=== PATIENT | female | born 1960 | race African-American/Black ===

== ENCOUNTER 2017-05-05 05:38 | Emergency (ER) | payer MEDICAID, OTHER ==
[~2017-05-05] VITALS: Ht 170.2 cm; Wt 92.1 kg
[~2017-05-05 05:38] MED LIST: ATENOLOL25 MG ORAL; GUAIFENESIN-CO118 M1 ORAL; HYDROCHLOROTHIA25 MG ORAL
[2017-05-05 05:57] VITALS: BP 192/105
--- NOTE | 2017-05-05 05:57 | Emergency Room Report ---
History of Present Illness General Chief Complaint: Chest Pain Source: Patient Present Illness HPI This is a 56-year-old female with history of high blood pressure. She's also history of chronic pain for which she takes baclofen and oxycodone. She presents with chief complaint of chest pain shortness of breath for the last 2- 3 days. Pain is sharp in nature. Worse with inspiration. No fever chills. Himrod short of breath. Hurts to smoke. Unable to smoke last few days. Does have some congestion. No radiation of the pain. Pain is 9 out of 10. Constant for 2-3 days. She says she has not taken her oxycodone for last 3-4 days. Allergies: Coded Allergies: No Known Allergies (Unverified , 07/24/12) Patient History Past Medical History: see triage record, old chart reviewed, HTN Past Surgical History: other Pertinent Family History: none Social History: Reports: smoking Last Menstrual Period: none Now: No Immunizations: other Reviewed Nursing Documentation: PMH: Agreed; PSxH: Agreed Nursing Documentation-PMH Hx Hypertension: Yes Review of Systems Eye: Denies: eye pain, blurred vision ENT: Denies: ear pain, nose congestion, throat swelling Respiratory: Reports: shortness of breath; Denies: cough Cardiovascular: Reports: chest pain; Denies: palpitations Gastrointestinal: Denies: abdominal pain, diarrhea, nausea, vomiting Musculoskeletal: Denies: back pain, joint pain Skin: Denies: rash Neurological: Denies: headache, numbness Endocrine: Denies: increased thirst, increased urine Hematologic/Lymphatic: Denies: easy bruising All Other Systems: negative except mentioned in HPI Physical Exam Vital Signs Date Time Temp Pulse Resp B/P (MAP) Pulse Ox O2 Delivery O2 Flow Rate FiO2 05/05/17 05:40 98.0 70 18 192/105 98 Room Air 98.1 vitals with high blood pressure Sp02 EP Interpretation: reviewed, normal General Appearance: well appearing, no apparent distress, alert Head: normocephalic, atraumatic Eyes: bilateral eye PERRL, bilateral eye EOMI ENT: hearing grossly normal, normal pharynx Neck: full range of motion, supple, no meningismus Respiratory: chest non-tender, lungs clear, normal breath sounds Cardiovascular #1: regular rate, rhythm, no murmur Gastrointestinal: normal bowel sounds, non tender, no mass, no organomegaly, no bruit, non-distended Musculoskeletal: back normal, gait/station normal, normal range of motion Psychiatric: mood/affect normal Skin: warm/dry Medical Decision Making Diagnostic Impression: Primary Impression: Chest pain Qualified Codes: R07.9 - Chest pain, unspecified Additional Impression: Hypertension Qualified Codes: I10 - Essential (primary) hypertension ER Course Patient present with atypical chest pain. Onset for last 2 days. Better after breathing treatment. Labs and urine pending. I will sign this patient out to for final disposition. EKG Diagnostic Results Rate: normal Rhythm: NSR ST Segments: no acute changes ASA given to the pt in ED: Yes Rhythm Strip Diag. Results Rhythm Strip Time: 05:57 EP Interpretation: yes Rate: 70 Rhythm: NSR, no PVC's, no ectopy Chest X-Ray Diagnostic Results Chest X-Ray Diagnostic Results : Chest X-Ray Ordered: Yes # of Views/Limited/Complete: 1 View Indication: Chest Pain EP Interpretation: Yes Interpretation: no consolidation, no effusion, no pneumothorax, no acute cardiopulmonary disease Impression: No acute disease Electronically Signed by: Reed Lopez MD Last Vital Signs Date Time Temp Pulse Resp B/P (MAP) Pulse Ox O2 Delivery O2 Flow Rate FiO2 05/05/17 05:40 98.0 70 18 192/105 98 Room Air 98.1 Referrals: [facility],REFERRING (PCP) REED LOPEZ M.D. May 05, 2017 05:57
[2017-05-05] MEDS ORDERED: Albuterol ud Inhalation HHN ONE (06:00)
[2017-05-05] MEDS ORDERED: Aspirin Baby 81mg ORAL ONE (06:00)
[2017-05-05] MEDS ORDERED: Ipratropium 0.02% Inh Soln 2.5ml UD HHN ONE (06:00)
[2017-05-05 07:03] LABS: HEMATOCRIT 48.2 % (37.0-47.0); HEMOGLOBIN 16.5 G/DL (12.0-16.0); MEAN CORPUSCULAR VOLUME 98 FL (80-99); PLATELET COUNT 243 K/UL (150-450); RED BLOOD COUNT 4.91 M/UL (4.20-5.40); RED CELL DISTRIBUTION WIDTH 12.6 % (11.6-14.8); WHITE BLOOD COUNT 7.8 K/UL (4.8-10.8)
[2017-05-05 07:08] LABS: ANION GAP 5 mmol/L (5-15); APPEARANCE,URINE CLEAR; BILIRUBIN, URINE NEGATIVE (NEGATIVE); BLOOD UREA NITROGEN 13 mg/dL (7-18); CALCIUM 8.9 MG/DL (8.5-10.1); CARBON DIOXIDE 33 MMOL/L (21-32); CHLORIDE 107 MMOL/L (98-107); GLUCOSE, URINE (UA) NEGATIVE (NEGATIVE); KETONES,URINE NEGATIVE (NEGATIVE); LEUKOCYTE ESTERASE ,URINE 1+ (NEGATIVE); NITRITE,URINE NEGATIVE (NEGATIVE); PH,URINE 6 (4.5-8.0); POTASSIUM 3.5 MMOL/L (3.5-5.1); PROTEIN,URINE 1+ (NEGATIVE); SODIUM 145 MMOL/L (136-145); UROBILINOGEN,URINE 1 MG/DL (0.0-1.0)
[2017-05-05 07:15] LABS: COLOR,URINE YELLOW
[2017-05-05 07:21] LABS: ALANINE AMINOTRANSFERASE 49 U/L (12-78); ALBUMIN 3.7 G/DL (3.4-5.0); ALBUMIN/GLOBULIN RATIO 0.9 (1.0-2.7); ALKALINE PHOSPHATASE 62 U/L (46-116); ASPARTATE AMINO TRANSFERASE 27 U/L (15-37); BILIRUBIN,TOTAL 0.5 MG/DL (0.2-1.0); CKMB 2.5 NG/ML (0.0-3.6); CREATINE KINASE 427 U/L (26-308)
[2017-05-05 08:32] VITALS: BP 190/70
[2017-05-05] MEDS ORDERED: Lisinopril 10mg tab ORAL ONE (08:45)
[2017-05-05 08:48] VITALS: BP 190/70
--- NOTE | 2017-05-05 10:55 | Diagnostic Imaging Report ---
Indication: Chest pain Technique: One view of the chest Comparison: 07/24/2012 Findings: Right perihilar linear opacity is similar to the previous exam, most likely represents area of scarring. The lungs and pleural spaces are otherwise clear. The heart size is normal. No significant interim change Impression: No acute process This agrees with the preliminary interpretation provided by the emergency room physician
--- NOTE | 2017-05-05 16:00 | Cardiology Report ---
APPROVED REPORT EKG Measurement Heart [id number] Normal sinus rhythm Possible Left atrial enlargement Nonspecific T wave abnormality Abnormal ECG
== END 2017-05-05 08:48 | disposition home or self-care (01) ==
LOC: EMR 05:49
DX: R07.89 Other chest pain (principal); I10 Essential (primary) hypertension
CPT/HCPCS: 36415; 71045; 80053; 80307; 81003; 82550; 82553; 83880; 84484; 85007; 85025; 93005; 94640; 94664; 96374; 99284; J0360